=== PATIENT | male | born 1995 | race Caucasian/White ===

== ENCOUNTER 2018-11-16 23:04 | Inpatient (IN) | payer BC ==
[~2018-11-16] VITALS: Ht 180.3 cm; Wt 70.3 kg
--- NOTE | 2018-11-16 23:57 | PHYS DOC ---
Adult General Chief Complaint Chief Complaint: SEIZURE HPI HPI Patient is a 23 year old male with history of depression who presents witnessed first time seizure episode lasting 1-2 minutes. Patient states he was sitting on his couch watching TV show when the episode occurred. Denies aura, headache, change of vision, palpitations or other symptoms prior to onset of seizure. Patient's mother states that the patient twisted his left arm back towards and above his head, grimaced his face, then had a tonic seizure lasting about 1-2 minutes. Patient salivating during the episode. No tongue laceration or loss of bowel or bladder injury.The patient does not recall the episode. The first thing he recalls is EMS standing over his head. Patient complains of mild residual headache, nausea. Patient vomited once prior to ED arrival. Denies prior seizures, family history of epilepsy. No recent illnesses. Reports THC and alcohol use.. Patient has missed 2 doses of citalopram in the past. Patient also reports left shoulder pain with shoulder immobility deformity suggestive of dislocation.[] Review of Systems Review of Systems ROS as per HPI All other systems were reviewed and found to be within normal limits, except as documented in this note. Current Medications Current Medications Current Medications Medications (Trade) Dose Ordered Sig/Олег Start Time Stop Time Status Last Admin Dose Admin Ketorolac Tromethamine (Toradol 15mg Vial) 15 mg 1X ONCE 11/17/18 03:00 11/17/18 03:01 DC 11/17/18 02:58 15 MG Ondansetron HCl (Zofran) 4 mg 1X ONCE 11/17/18 00:00 11/17/18 00:01 DC 11/17/18 00:04 4 MG Propofol (Diprivan) 200 mg 1X ONCE 11/17/18 00:25 11/17/18 01:52 DC 11/17/18 00:25 200 MG Allergies Allergies Allergies Coded Allergies Type Severity Reaction Last Updated Verified No Known Drug Allergies 11/16/18 No Physical Exam Physical Exam Constitutional: Well developed, well nourished, no acute distress, non-toxic appearance. [] HENT: Normocephalic, atraumatic, bilateral external ears normal, oropharynx moist, no tongue or oral lacerations. [] Eyes: PERRLA, EOMI, conjunctiva normal, no discharge. [] Neck: Normal range of motion, no tenderness. [] Cardiovascular:Heart rate regular rhythm, no murmur [] Lungs & Thorax: Bilateral breath sounds clear to auscultation [] Abdomen: Bowel sounds normal, soft, no tenderness. [] Skin: Warm, dry, no erythema. [] Back: No tenderness. [] Extremities: Upper extremity, left shoulder, consistent with dislocation, emotionally checked due to pain. [] Neurologic: Alert and oriented X 3, renal nerves II through XII grossly intact, normal motor function, normal sensory function, no focal deficits noted. [] Psychologic: Affect normal, judgement normal, mood normal. [] Current Patient Data Vital Signs Vital Signs Date Time Temp Pulse Resp B/P (MAP) Pulse Ox O2 Delivery O2 Flow Rate FiO2 11/17/18 05:14 59 12 98 11/17/18 00:27 98.9 127/82 2.0 98.3 2.0 98.4 2.0 2.0 2.0 2.0 11/16/18 23:07 Room Air Lab Values Laboratory Tests Test 11/16/18 23:51 11/17/18 02:00 White Blood Count 14.3 x10^3/uL (4.0-11.0) H Red Blood Count 4.98 x10^6/uL (4.30-5.70) Hemoglobin 14.3 g/dL (13.0-17.5) Hematocrit 42.6 % (39.0-53.0) Mean Corpuscular Volume 86 fL (79-100) Mean Corpuscular Hemoglobin 29 pg (25-35) Mean Corpuscular Hemoglobin Concent 34 g/dL (31-37) Red Cell Distribution Width 13.2 % (11.5-14.5) Platelet Count 305 x10^3/uL (140-400) Neutrophils (%) (Auto) 85 % (31-73) H Lymphocytes (%) (Auto) 7 % (24-48) L Monocytes (%) (Auto) 8 % (0-9) Eosinophils (%) (Auto) 0 % (0-3) Basophils (%) (Auto) 0 % (0-3) Neutrophils # (Auto) 12.1 x10^3uL (1.8-7.7) H Lymphocytes # (Auto) 1.0 x10^3/uL (1.0-4.8) Monocytes # (Auto) 1.1 x10^3/uL (0.0-1.1) Eosinophils # (Auto) 0.0 x10^3/uL (0.0-0.7) Basophils # (Auto) 0.0 x10^3/uL (0.0-0.2) Segmented Neutrophils % 80 % (35-66) H Band Neutrophils % 1 % (0-9) Lymphocytes % 11 % (24-48) L Monocytes % 8 % (0-10) Platelet Estimate Adequate (ADEQUATE) Sodium Level 135 mmol/L (136-145) L Potassium Level 3.6 mmol/L (3.5-5.1) Chloride Level 97 mmol/L (98-107) L Carbon Dioxide Level 26 mmol/L (21-32) Anion Gap 12 (6-14) Blood Urea Nitrogen 20 mg/dL (8-26) Creatinine 1.4 mg/dL (0.7-1.3) H Estimated GFR (Cockcroft-Gault) 63.4 BUN/Creatinine Ratio 14 (6-20) Glucose Level 143 mg/dL (70-99) H Calcium Level 8.9 mg/dL (8.5-10.1) Total Bilirubin 1.0 mg/dL (0.2-1.0) Aspartate Amino Transferase (AST) 30 U/L (15-37) Alanine Aminotransferase (ALT) 35 U/L (16-63) Alkaline Phosphatase 65 U/L (46-116) Total Protein 7.6 g/dL (6.4-8.2) Albumin 4.4 g/dL (3.4-5.0) Albumin/Globulin Ratio 1.4 (1.0-1.7) Ethyl Alcohol Level < 10 mg/dL (0-10) Urine Opiates Screen Neg (NEG) Urine Methadone Screen Neg (NEG) Urine Barbiturates Neg (NEG) Urine Phencyclidine Screen Neg (NEG) Urine Amphetamine/Methamphetamine Neg (NEG) Urine Benzodiazepines Screen Neg (NEG) Urine Cocaine Screen Neg (NEG) Urine Cannabinoids Screen Pos (NEG) Urine Ethyl Alcohol Neg (NEG) Laboratory Tests 11/16/18 23:51 Laboratory Tests 11/16/18 23:51 EKG EKG [EKG: Reviewed] Radiology/Procedures Radiology/Procedures [CT head: No acute findings radiology report Chest x-ray/left shoulder: Posterior shoulder dislocation.] Left shoulder reduction procedure note Indication: Left shoulder dislocation Anesthesia used: Propofol, 400 mg Consent: Risks benefits and alternatives discussed in detail with the patient rolled rest procedure Performing physician: Dr. Jake Pulido Respiratory therapist, nurse at bedside. Patient Cardiovascular pulse oximetry and cooximeter monitors. Patient equiring large quantity of anesthesia for adequate sedation. Alert and talking throughout procedure. Successful relocation of left shoulder with countertraction traction technique. No complications. NV intact on re-examination. Arm placed in sling. Course & Med Decision Making Course & Med Decision Making Pertinent Labs and Imaging studies reviewed. (See chart for details) [On further questioning, the patient reports history of alcoholism with recent relapse over the past 2 weeks. Patient's last drink was 2 days ago. Denies prior alcohol withdrawal seizures. He denies chest pain, anxiety and palpitations. Patient is not tachycardic or hypertensive. No hallucinations exhibit signs of alcohol control. States he usually does not go through alcohol withdrawal with exception of increased internal anxiety. Ativan and Zofran given. Large dosage of propofol required to reduce shoulder. Shoulder placed in sling.. Case discussed with on-call neurologist. Recommendations are for hospitalist admission for training. Dr. Dorsey to admit. ] Dragon Disclaimer Dragon Disclaimer This electronic medical record was generated, in whole or in part, using a voice recognition dictation system. Departure Departure Impression: Primary Impression: Alcohol withdrawal seizure Additional Impression: Shoulder dislocation Disposition: ADMITTED INPATIENT Admitting Physician: Other (Dr. dorsey) Condition: IMPROVED Problem Qualifiers JAKE PULIDO DO Nov 16, 2018 23:57
[2018-11-17] MEDS ORDERED: ONDANSETRON PF 4 MG/2 ML VIAL. IV ONE
[2018-11-17 00:02] LABS: BASO % 0 % (0-3); EOS % 0 % (0-3); HEMATOCRIT 42.6 % (39.0-53.0); HEMOGLOBIN 14.3 g/dL (13.0-17.5); LYMPH % 7 % (24-48); MEAN CORPUSCULAR HEMOGLOBIN 29 pg (25-35); MEAN CORPUSCULAR HGB CONC 34 g/dL (31-37); MEAN CORPUSCULAR VOLUME 86 fL (79-100); MONO # 1.1 x10^3/uL (0.0-1.1); MONO % 8 % (0-9); NEUT # 12.1 x10^3uL (1.8-7.7); NEUT % 85 % (31-73); PLATELET COUNT 305 x10^3/uL (140-400); RED BLOOD COUNT 4.98 x10^6/uL (4.30-5.70); RED CELL DISTRIBUTION WIDTH 13.2 % (11.5-14.5); WHITE BLOOD COUNT 14.3 x10^3/uL (4.0-11.0)
[2018-11-17 00:16] LABS: CALCIUM 8.9 mg/dL (8.5-10.1); CREATININE 1.4 mg/dL (0.7-1.3); GFR 63.4; POTASSIUM 3.6 mmol/L (3.5-5.1)
[2018-11-17 00:24] LABS: ALBUMIN 4.4 g/dL (3.4-5.0); ALBUMIN/GLOBULIN RATIO 1.4 (1.0-1.7); TOTAL PROTEIN 7.6 g/dL (6.4-8.2)
[2018-11-17] MEDS ORDERED: PROPOFOL 10 MG/ML (20ML) VIAL. IV ONE ×2 (00:25)
[2018-11-17 00:27] VITALS: BP 127/82
--- NOTE | 2018-11-17 01:43 | RAD ---
CT head without contrast PQRS statement: CT scans at this facility use dose reduction including either automated exposure control, iterative reconstructions, and /or weight based radiation dosing via mA and kV modification when appropriate to reduce radiation dose to as low as reasonably achievable. HISTORY: Seizure. TECHNIQUE: [address] imaging skull base to vertex. FINDINGS: No intracranial hemorrhage, mass, hydrocephalus, extra-axial fluid collections or infarction. No acute ischemic change. Orbits, mastoids, paranasal sinuses and bones are unremarkable. IMPRESSION: No acute intracranial CT abnormality. Electronically signed by: Jose Sharma MD (11/17/2018 1:40 AM) [facility]
[2018-11-17 02:22] LABS: % BANDS 1 % (0-9); % LYMPHS 11 % (24-48); % MONOS 8 % (0-10); % SEGS 80 % (35-66); PLT ESTIMATE ADEQUATE (ADEQUATE)
[2018-11-17 02:28] LABS: BARBITURATES NEG (NEG); BENZODIAZEPINES NEG (NEG); CANNABINOIDS POS (NEG); COCAINE NEG (NEG); METHADONE NEG (NEG); OPIATES NEG (NEG); PHENCYCLIDINE NEG (NEG)
[2018-11-17 02:29] LABS: AMPHETAMINE/METHAMPHETAMINE NEG (NEG)
[2018-11-17] MEDS ORDERED: KETOROLAC 15 MG/ML VIAL. IV ONE (03:00)
[2018-11-17] MEDS ORDERED: chlordiazePOXIDE HCL 25 MG CAPSULE PO PRN (06:00)
[2018-11-17] MEDS ORDERED: ONDANSETRON PF 4 MG/2 ML VIAL. IV PRN (06:00)
[2018-11-17] MEDS ORDERED: MULTIVIT INFUSN,ADULT 4,VIT K 10 ML, THIAMINE INJ 100 MG, FOLIC ACID INJ 1 MG in IV NOR... IV ONE (07:00)
[2018-11-17 07:45] VITALS: BP 114/62
--- NOTE | 2018-11-17 07:53 | RAD ---
Portable left shoulder, single view, 11/17/2018: HISTORY: Postreduction evaluation A single black view of the left shoulder was obtained and compared to yesterday's exam. There appears to have been satisfactory reduction of the left shoulder dislocation as seen on this limited exam.. No definite fracture is evident. Electronically signed by: Clayton Ralph MD (11/17/2018 7:50 AM) [facility]
--- NOTE | 2018-11-17 08:47 | RAD ---
SHOULDER 2+V LEFT History: LT SHOULDER PAIN, injury Comparison: None. Findings: 2 views left shoulder are submitted. There is left inferior and likely anterior shoulder dislocation. Impression: 1. There is left inferior and likely anterior shoulder dislocation. Electronically signed by: David Tuttle MD (11/17/2018 8:43 AM) [facility]
--- NOTE | 2018-11-17 09:16 | PDOC1 ---
History and Physical Date of Admission Date of Admission DATE: 11/17/18 TIME: 09:15 Identification/Chief Complaint Chief Complaint presented to ER, witnessed first time seizure episode lasting 1-2 minutes. Patient states he was sitting on his couch watching TV show when the episode occurred. Denies aura, headache, change of vision, palpitations or other symptoms prior to onset of seizure. Patient's mother states that the patient twisted his left arm back towards and above his head, grimaced his face, then had a tonic seizure lasting about 1-2 minutes Patient reports he started drinking a lot in high school, became worse in college, attends [employer] in [employer], lives off campus in [place], drinks beer and heavy liquor use., no previous DUI, OR SEIZURES REPORTS GRADES ARE OK AT Past Medical History Cardiovascular: No pertinent hx Pulmonary: No pertinent hx GI: No pertinent hx Psych: Addictions Renal/: No pertinent hx Endocrine: No pertinent hx Dermatology: No pertinent hx Family History Family History: Alcohol Abuse (PARENTS AND UNCLES), High Cholestrol Social History Smoke: No ALCOHOL: heavy Drugs: None, Marijuana Current Medications Current Medications Current Medications Propofol (Diprivan) 200 mg 1X ONCE IV Last administered on 11/17/18at 00:00; Start 11/17/18 at 00:00; Stop 11/17/18 at 00:01; Status DC Ondansetron HCl (Zofran) 4 mg 1X ONCE IV Last administered on 11/17/18at 00:04 ; Start 11/17/18 at 00:00; Stop 11/17/18 at 00:01; Status DC Propofol (Diprivan) 200 mg 1X ONCE IV Last administered on 11/17/18at 00:25; Start 11/17/18 at 00:25; Stop 11/17/18 at 01:52; Status DC Ketorolac Tromethamine (Toradol 15mg Vial) 15 mg 1X ONCE IV Last administered on 11/17/18at 02:58; Start 11/17/18 at 03:00; Stop 11/17/18 at 03:01; Status DC Ondansetron HCl (Zofran) 4 mg PRN Q8HRS PRN IV NAUSEA/VOMITING 1ST CHOICE; Start 11/17/18 at 06:00; Stop 11/18/18 at 05:59 Chlordiazepoxide (Librium) 50 mg PRN Q1HR PRN PO For CIWA 8-14; Start 11/17/18 at 06:00 Multivitamins 10 ml/Thiamine HCl 100 mg/Folic Acid 1 mg/Sodium Chloride 1,011.2 ml @ 1,000.088 mls/hr 1X ONCE IV Last administered on 11/17/18at 06:03; Start 11/17/18 at 07:00; Stop 11/17/18 at 08:00; Status DC Allergies Allergies: Coded Allergies: No Known Drug Allergies (Unverified , 11/16/18) ROS Review of System 14 PT ROS OTHERWISE NEG General: No: Chills, Night Sweats, Fatigue, Malaise, Appetite, Other PSYCHOLOGICAL ROS: No: Anxiety, Behavioral Disorder, Concentration difficultie , Decreased libido, Depression, Disorientation, Hallucinations, Hostility, Irritablity, Memory difficulties, Mood Swings, Obsessive thoughts, Physical abuse, Sexual abuse, Sleep disturbances, Suicidal ideation, Other Eyes: No Blurry vision, No Decreased vision, No Double vision, No Dry eyes, No Excessive tearing, No Eye Pain, No Itchy Eyes, No Loss of vision, No Photophobia , No Scotomata, No Uses contacts, No Uses glasses, No Other ALLERGY AND IMMUNOLOGY: No: Hives, Insect Bite Sensitivity, Itchy/Watery Eyes, Nasal Congestion, Post Nasal Drip, Seasonal Allergies, Other Hematological and Lymphatic: No: Bleeding Problems, Blood Clots, Blood Transfusions, Brusing, Night Sweats, Pallor, Swollen Lymph Nodes, Other ENDOCRINE: No: Breast Changes, Galactorrhea, Hair Pattern Changes, Hot Flashes , Malaise/lethargy, Mood Swings, Palpitations, Polydipsia/polyuria, Skin Changes , Temperature Intolerance, Unexpected Weight Changes, Other Breast: No New/Changing Breast Lumps, No Nipple changes, No Nipple discharge, No Other Respiratory: No: Cough, Hemoptysis, Orthopnea, Pleuritic Pain, Shortness of breath, SOB with excertion, Sputum Changes, Stridor, Tachypnea, Wheezing, Other Cardiovascular: No Chest Pain, No Palpitations, No Orthopnea, No Paroxysmal Noc. Dyspnea, No Edema, No Lt Headedness, No Other Gastrointestinal: No Nausea, No Vomiting, No Abdominal Pain, No Diarrhea, No Constipation, No Melena, No Hematochezia, No Other Genitourinary: No Dysuria, No Frequency, No Incontinence, No Hematuria, No Retention, No Discharge, No Urgency, No Pain, No Flank Pain, No Other, No , No , No , No , No , No , No Musculoskeletal: Yes Joint Pain, Yes Other (LEFT SHOULDER PAIN); No Gait Disturbance, No Joint Stiffness, No Joint Swelling, No Muscle Pain, No Muscular Weakness, No Pain In:, No Swelling In: Neurological: Yes Seizures; No Behavorial Changes, No Bowel/Bladder ControlChng, No Confusion, No Dizziness, No Gait Disturbance, No Headaches, No Impaired Coord/balance, No Memory Loss, No Numbness/Tingling, No Speech Problems, No Tremors, No Visual Changes, No Weakness, No Other Skin: No Dry Skin, No Eczema, No Hair Changes, No Lumps, No Mole Changes, No Mottling, No Nail Changes, No Pruritus, No Rash, No Skin Lesion Changes, No Other, No Acne Physical Exam Physical Exam Physical Exam Physical Exam Constitutional: Well developed, well nourished, no acute distress, non-toxic appearance. [] HENT: Normocephalic, atraumatic, bilateral external ears normal, oropharynx moist, no tongue or oral lacerations. [] Eyes: PERRLA, EOMI, conjunctiva normal, no discharge. [] Neck: Normal range of motion, no tenderness. [] Cardiovascular:Heart rate regular rhythm, no murmur [] Lungs & Thorax: Bilateral breath sounds clear to auscultation [] Abdomen: Bowel sounds normal, soft, no tenderness. [] Skin: Warm, dry, no erythema. [] Back: No tenderness. [] Extremities: Upper extremity, left shoulder, consistent, due to pain. [] Neurologic: Alert and oriented X 3, renal nerves II through XII grossly intact, normal sensory function, no focal deficits noted. [] Psychologic: Affect normal, judgement normal, mood normal. [] General: Alert, Oriented X3, Cooperative, mild distress HEENT: Atraumatic, PERRLA Lungs: Clear to auscultation Heart: RRR, no thrills, no gallops, no murmurs Abdomen: Normal bowel sounds, Soft Rectal Exam: not examined PELVIC: Examination not indicated Extremities: No clubbing, No cyanosis Skin: No significant lesion Neuro: Normal speech, Strength at 5/5 X4 ext, Normal tone, Cranial nerves 3-12 NL Psych/Mental Status: Mental status NL, Mood NL Vitals Vitals Vital Signs Date Time Temp Pulse Resp B/P (MAP) Pulse Ox O2 Delivery O2 Flow Rate FiO2 11/17/18 06:44 79 18 98 11/17/18 00:27 98.9 127/82 2.0 98.3 2.0 98.4 2.0 2.0 2.0 2.0 11/16/18 23:07 Room Air Labs Labs Laboratory Tests Test 11/16/18 23:51 11/17/18 02:00 White Blood Count 14.3 x10^3/uL (4.0-11.0) Red Blood Count 4.98 x10^6/uL (4.30-5.70) Hemoglobin 14.3 g/dL (13.0-17.5) Hematocrit 42.6 % (39.0-53.0) Mean Corpuscular Volume 86 fL (79-100) Mean Corpuscular Hemoglobin 29 pg (25-35) Mean Corpuscular Hemoglobin Concent 34 g/dL (31-37) Red Cell Distribution Width 13.2 % (11.5-14.5) Platelet Count 305 x10^3/uL (140-400) Neutrophils (%) (Auto) 85 % (31-73) Lymphocytes (%) (Auto) 7 % (24-48) Monocytes (%) (Auto) 8 % (0-9) Eosinophils (%) (Auto) 0 % (0-3) Basophils (%) (Auto) 0 % (0-3) Neutrophils # (Auto) 12.1 x10^3uL (1.8-7.7) Lymphocytes # (Auto) 1.0 x10^3/uL (1.0-4.8) Monocytes # (Auto) 1.1 x10^3/uL (0.0-1.1) Eosinophils # (Auto) 0.0 x10^3/uL (0.0-0.7) Basophils # (Auto) 0.0 x10^3/uL (0.0-0.2) Segmented Neutrophils % 80 % (35-66) Band Neutrophils % 1 % (0-9) Lymphocytes % 11 % (24-48) Monocytes % 8 % (0-10) Platelet Estimate Adequate (ADEQUATE) Sodium Level 135 mmol/L (136-145) Potassium Level 3.6 mmol/L (3.5-5.1) Chloride Level 97 mmol/L (98-107) Carbon Dioxide Level 26 mmol/L (21-32) Anion Gap 12 (6-14) Blood Urea Nitrogen 20 mg/dL (8-26) Creatinine 1.4 mg/dL (0.7-1.3) Estimated GFR (Cockcroft-Gault) 63.4 BUN/Creatinine Ratio 14 (6-20) Glucose Level 143 mg/dL (70-99) Calcium Level 8.9 mg/dL (8.5-10.1) Magnesium Level 2.5 mg/dL (1.8-2.4) Total Bilirubin 1.0 mg/dL (0.2-1.0) Aspartate Amino Transf (AST/SGOT) 30 U/L (15-37) Alanine Aminotransferase (ALT/SGPT) 35 U/L (16-63) Alkaline Phosphatase 65 U/L (46-116) Total Protein 7.6 g/dL (6.4-8.2) Albumin 4.4 g/dL (3.4-5.0) Albumin/Globulin Ratio 1.4 (1.0-1.7) Ethyl Alcohol Level < 10 mg/dL (0-10) Urine Opiates Screen Neg (NEG) Urine Methadone Screen Neg (NEG) Urine Barbiturates Neg (NEG) Urine Phencyclidine Screen Neg (NEG) Urine Amphetamine/Methamphetamine Neg (NEG) Urine Benzodiazepines Screen Neg (NEG) Urine Cocaine Screen Neg (NEG) Urine Cannabinoids Screen Pos (NEG) Urine Ethyl Alcohol Neg (NEG) Laboratory Tests Test 11/16/18 23:51 11/17/18 02:00 White Blood Count 14.3 x10^3/uL (4.0-11.0) Red Blood Count 4.98 x10^6/uL (4.30-5.70) Hemoglobin 14.3 g/dL (13.0-17.5) Hematocrit 42.6 % (39.0-53.0) Mean Corpuscular Volume 86 fL (79-100) Mean Corpuscular Hemoglobin 29 pg (25-35) Mean Corpuscular Hemoglobin Concent 34 g/dL (31-37) Red Cell Distribution Width 13.2 % (11.5-14.5) Platelet Count 305 x10^3/uL (140-400) Neutrophils (%) (Auto) 85 % (31-73) Lymphocytes (%) (Auto) 7 % (24-48) Monocytes (%) (Auto) 8 % (0-9) Eosinophils (%) (Auto) 0 % (0-3) Basophils (%) (Auto) 0 % (0-3) Neutrophils # (Auto) 12.1 x10^3uL (1.8-7.7) Lymphocytes # (Auto) 1.0 x10^3/uL (1.0-4.8) Monocytes # (Auto) 1.1 x10^3/uL (0.0-1.1) Eosinophils # (Auto) 0.0 x10^3/uL (0.0-0.7) Basophils # (Auto) 0.0 x10^3/uL (0.0-0.2) Segmented Neutrophils % 80 % (35-66) Band Neutrophils % 1 % (0-9) Lymphocytes % 11 % (24-48) Monocytes % 8 % (0-10) Platelet Estimate Adequate (ADEQUATE) Sodium Level 135 mmol/L (136-145) Potassium Level 3.6 mmol/L (3.5-5.1) Chloride Level 97 mmol/L (98-107) Carbon Dioxide Level 26 mmol/L (21-32) Anion Gap 12 (6-14) Blood Urea Nitrogen 20 mg/dL (8-26) Creatinine 1.4 mg/dL (0.7-1.3) Estimated GFR (Cockcroft-Gault) 63.4 BUN/Creatinine Ratio 14 (6-20) Glucose Level 143 mg/dL (70-99) Calcium Level 8.9 mg/dL (8.5-10.1) Magnesium Level 2.5 mg/dL (1.8-2.4) Total Bilirubin 1.0 mg/dL (0.2-1.0) Aspartate Amino Transf (AST/SGOT) 30 U/L (15-37) Alanine Aminotransferase (ALT/SGPT) 35 U/L (16-63) Alkaline Phosphatase 65 U/L (46-116) Total Protein 7.6 g/dL (6.4-8.2) Albumin 4.4 g/dL (3.4-5.0) Albumin/Globulin Ratio 1.4 (1.0-1.7) Ethyl Alcohol Level < 10 mg/dL (0-10) Urine Opiates Screen Neg (NEG) Urine Methadone Screen Neg (NEG) Urine Barbiturates Neg (NEG) Urine Phencyclidine Screen Neg (NEG) Urine Amphetamine/Methamphetamine Neg (NEG) Urine Benzodiazepines Screen Neg (NEG) Urine Cocaine Screen Neg (NEG) Urine Cannabinoids Screen Pos (NEG) Urine Ethyl Alcohol Neg (NEG) Images Images \ Portable left shoulder, single view, 11/17/2018: HISTORY: Postreduction evaluation A single black view of the left shoulder was obtained and compared to yesterday's exam. There appears to have been satisfactory reduction of the left shoulder dislocation as seen on this limited exam.. No definite fracture is evident. Electronically signed by: Clayton Ralph MD (11/17/2018 7:50 AM) [facility] DICTATED and SIGNED BY: CLAYTON RALPH MD STATUS: REG ER ORD. PHYSICIAN: HERNÁN PULIDO DO REASON: Seizure PROCEDURE: CT HEAD WO CONTRAST CT head without contrast PQRS statement: CT scans at this facility use dose reduction including either automated exposure control, iterative reconstructions, and /or weight based radiation dosing via mA and kV modification when appropriate to reduce radiation dose to as low as reasonably achievable. HISTORY: Seizure. TECHNIQUE: [address] imaging skull base to vertex. FINDINGS: No intracranial hemorrhage, mass, hydrocephalus, extra-axial fluid collections or infarction. No acute ischemic change. Orbits, mastoids, paranasal sinuses and bones are unremarkable. IMPRESSION: No acute intracranial CT abnormality. Electronically signed by: Jose Sharma MD (11/17/2018 1:40 AM) [facility] VTE Prophylaxis Ordered VTE Prophylaxis Devices: Yes VTE Pharmacological Prophylaxi: Yes Assessment/Plan Assessment/Plan impression 1. alcohol related withdrawal seizure, new 2. alcohol abuse 3. thc abuse 4. shoulder pain, There appears to have been satisfactory reduction of left shoulder dislocation plan tele seizure precautions neurology consult alcohol withdrawal protocol banana bag thiamine folic acid dvt prophylaxis protonix gi prophylaxis ct head x-ray shoulder alcohol treatment cessation needed, educated LEFT ARM SLING ATTEND AA 78 min pt exam, chart review, > 50% of time with exam, chart review, pt care coordination ADIA VILLALOBOS MD Nov 17, 2018 09:15
[2018-11-17 11:00] VITALS: BP 119/65
[2018-11-17] MEDS ORDERED: CITA20TA9 PO (11:16)
--- NOTE | 2018-11-17 12:26 | PDOC2 ---
NEUROLOGY CONSULT Date of Admission Date of Admission DATE: 11/17/18 TIME: 12:18 Reason for Consult Reason for Consult: New seizure Referring Physician Referring Physician: Dr. Wall Source Source: Caregiver (Father), Chart review, Patient History of Present Illness History of Present Illness The patient is a 23-year-old right-handed male who was sitting on his couch yesterday morning when he had a seizure. It lasted about a minute or 2 and there was tongue biting and probably some incontinence. He's never had a seizure before. There is a history of concussion. He does drink alcohol, starting in high school in binge drinking in college. He had some binge drinking a week ago and then think again 3 days ago, proximally 4 beverages. He' s never had delirium tremens.He does see a psychiatrist who has been prescribing citalopram. Past Medical History Psych: Anxiety, Depression Past Surgical History Past Surgical History: No pertinent history Family History Family History: No pertinent hx ( negative for seizures) Social History Social History Alcohol history as above, student, occasional marijuana, he vapes tobacco. Current Medications Current Medications Current Medications Propofol (Diprivan) 200 mg 1X ONCE IV Last administered on 11/17/18at 00:00; Start 11/17/18 at 00:00; Stop 11/17/18 at 00:01; Status DC Ondansetron HCl (Zofran) 4 mg 1X ONCE IV Last administered on 11/17/18at 00:04 ; Start 11/17/18 at 00:00; Stop 11/17/18 at 00:01; Status DC Propofol (Diprivan) 200 mg 1X ONCE IV Last administered on 11/17/18at 00:25; Start 11/17/18 at 00:25; Stop 11/17/18 at 01:52; Status DC Ketorolac Tromethamine (Toradol 15mg Vial) 15 mg 1X ONCE IV Last administered on 11/17/18at 02:58; Start 11/17/18 at 03:00; Stop 11/17/18 at 03:01; Status DC Ondansetron HCl (Zofran) 4 mg PRN Q8HRS PRN IV NAUSEA/VOMITING 1ST CHOICE; Start 11/17/18 at 06:00; Stop 11/18/18 at 05:59 Chlordiazepoxide (Librium) 50 mg PRN Q1HR PRN PO For CIWA 8-14; Start 11/17/18 at 06:00 Multivitamins 10 ml/Thiamine HCl 100 mg/Folic Acid 1 mg/Sodium Chloride 1,011.2 ml @ 1,000.088 mls/hr 1X ONCE IV Last administered on 11/17/18at 06:03; Start 11/17/18 at 07:00; Stop 11/17/18 at 08:00; Status DC Citalopram Hydrobromide (CeleXA) 20 mg DAILY PO ; Start 11/17/18 at 12:30 Active Scripts Active Reported Celexa (Citalopram Hydrobromide) 20 Mg Tablet 1 Tab PO DAILY Allergies Allergies: Coded Allergies: No Known Drug Allergies (Unverified , 11/16/18) ROS Review of System Negative for fever, chills, weight loss, shortness of breath, chest pain, indigestion, hematochezia, melena, and dysuria. Full 14-point review of systems is negative. Physical Exam Physical Examination General: Well-developed, well-nourished white male in no acute distress HEENT: Normocephalic andatraumatic, small tongue laceration. Temporal arteries pulsatile and nontender. Neck: Supple without bruit, no meningismus Musculoskeletal: Stability:see neurologic. Gait exam:see neurologic. Tone:see neurologic. Strength:see neurologic. Neurological: Mental Status:intact, orientation, memory, attention span/concentration, language, fund of knowledge normal. Cranial Nerves:Pupils equal and reactive to light, extraocular movements areintact, visual solis are full to confrontation. Facial sensation is normal. There is no facial asymmetry. Vestibulo-ocular reflex is intact. Palate elevates and tongue protrudes in midline. All other cranial related problems are negative except as mentioned before.Reflexes:2+ and symmetric with flexor plantar responses. Motor:5/5 strength with normal tone and bulk. Coordination:Finger-nose finger and heel-to -herring testing are normal. Rapid alternating movements and fine finger movements are intact. Gait:Normal, including tandem. Sensory:Normal pinprick, vibration , light touch, proprioception. Vitals VITALS Vital Signs Date Time Temp Pulse Resp B/P (MAP) Pulse Ox O2 Delivery O2 Flow Rate FiO2 11/17/18 11:00 98.7 78 18 119/65 (83) 99 Room Air 98.7 11/17/18 00:27 2.0 2.0 2.0 2.0 2.0 2.0 Labs Labs Laboratory Tests Test 11/16/18 23:51 11/17/18 02:00 White Blood Count 14.3 x10^3/uL (4.0-11.0) Red Blood Count 4.98 x10^6/uL (4.30-5.70) Hemoglobin 14.3 g/dL (13.0-17.5) Hematocrit 42.6 % (39.0-53.0) Mean Corpuscular Volume 86 fL (79-100) Mean Corpuscular Hemoglobin 29 pg (25-35) Mean Corpuscular Hemoglobin Concent 34 g/dL (31-37) Red Cell Distribution Width 13.2 % (11.5-14.5) Platelet Count 305 x10^3/uL (140-400) Neutrophils (%) (Auto) 85 % (31-73) Lymphocytes (%) (Auto) 7 % (24-48) Monocytes (%) (Auto) 8 % (0-9) Eosinophils (%) (Auto) 0 % (0-3) Basophils (%) (Auto) 0 % (0-3) Neutrophils # (Auto) 12.1 x10^3uL (1.8-7.7) Lymphocytes # (Auto) 1.0 x10^3/uL (1.0-4.8) Monocytes # (Auto) 1.1 x10^3/uL (0.0-1.1) Eosinophils # (Auto) 0.0 x10^3/uL (0.0-0.7) Basophils # (Auto) 0.0 x10^3/uL (0.0-0.2) Segmented Neutrophils % 80 % (35-66) Band Neutrophils % 1 % (0-9) Lymphocytes % 11 % (24-48) Monocytes % 8 % (0-10) Platelet Estimate Adequate (ADEQUATE) Sodium Level 135 mmol/L (136-145) Potassium Level 3.6 mmol/L (3.5-5.1) Chloride Level 97 mmol/L (98-107) Carbon Dioxide Level 26 mmol/L (21-32) Anion Gap 12 (6-14) Blood Urea Nitrogen 20 mg/dL (8-26) Creatinine 1.4 mg/dL (0.7-1.3) Estimated GFR (Cockcroft-Gault) 63.4 BUN/Creatinine Ratio 14 (6-20) Glucose Level 143 mg/dL (70-99) Calcium Level 8.9 mg/dL (8.5-10.1) Magnesium Level 2.5 mg/dL (1.8-2.4) Total Bilirubin 1.0 mg/dL (0.2-1.0) Aspartate Amino Transf (AST/SGOT) 30 U/L (15-37) Alanine Aminotransferase (ALT/SGPT) 35 U/L (16-63) Alkaline Phosphatase 65 U/L (46-116) Total Protein 7.6 g/dL (6.4-8.2) Albumin 4.4 g/dL (3.4-5.0) Albumin/Globulin Ratio 1.4 (1.0-1.7) Ethyl Alcohol Level < 10 mg/dL (0-10) Urine Opiates Screen Neg (NEG) Urine Methadone Screen Neg (NEG) Urine Barbiturates Neg (NEG) Urine Phencyclidine Screen Neg (NEG) Urine Amphetamine/Methamphetamine Neg (NEG) Urine Benzodiazepines Screen Neg (NEG) Urine Cocaine Screen Neg (NEG) Urine Cannabinoids Screen Pos (NEG) Urine Ethyl Alcohol Neg (NEG) Laboratory Tests Test 11/16/18 23:51 11/17/18 02:00 White Blood Count 14.3 x10^3/uL (4.0-11.0) Red Blood Count 4.98 x10^6/uL (4.30-5.70) Hemoglobin 14.3 g/dL (13.0-17.5) Hematocrit 42.6 % (39.0-53.0) Mean Corpuscular Volume 86 fL (79-100) Mean Corpuscular Hemoglobin 29 pg (25-35) Mean Corpuscular Hemoglobin Concent 34 g/dL (31-37) Red Cell Distribution Width 13.2 % (11.5-14.5) Platelet Count 305 x10^3/uL (140-400) Neutrophils (%) (Auto) 85 % (31-73) Lymphocytes (%) (Auto) 7 % (24-48) Monocytes (%) (Auto) 8 % (0-9) Eosinophils (%) (Auto) 0 % (0-3) Basophils (%) (Auto) 0 % (0-3) Neutrophils # (Auto) 12.1 x10^3uL (1.8-7.7) Lymphocytes # (Auto) 1.0 x10^3/uL (1.0-4.8) Monocytes # (Auto) 1.1 x10^3/uL (0.0-1.1) Eosinophils # (Auto) 0.0 x10^3/uL (0.0-0.7) Basophils # (Auto) 0.0 x10^3/uL (0.0-0.2) Segmented Neutrophils % 80 % (35-66) Band Neutrophils % 1 % (0-9) Lymphocytes % 11 % (24-48) Monocytes % 8 % (0-10) Platelet Estimate Adequate (ADEQUATE) Sodium Level 135 mmol/L (136-145) Potassium Level 3.6 mmol/L (3.5-5.1) Chloride Level 97 mmol/L (98-107) Carbon Dioxide Level 26 mmol/L (21-32) Anion Gap 12 (6-14) Blood Urea Nitrogen 20 mg/dL (8-26) Creatinine 1.4 mg/dL (0.7-1.3) Estimated GFR (Cockcroft-Gault) 63.4 BUN/Creatinine Ratio 14 (6-20) Glucose Level 143 mg/dL (70-99) Calcium Level 8.9 mg/dL (8.5-10.1) Magnesium Level 2.5 mg/dL (1.8-2.4) Total Bilirubin 1.0 mg/dL (0.2-1.0) Aspartate Amino Transf (AST/SGOT) 30 U/L (15-37) Alanine Aminotransferase (ALT/SGPT) 35 U/L (16-63) Alkaline Phosphatase 65 U/L (46-116) Total Protein 7.6 g/dL (6.4-8.2) Albumin 4.4 g/dL (3.4-5.0) Albumin/Globulin Ratio 1.4 (1.0-1.7) Ethyl Alcohol Level < 10 mg/dL (0-10) Urine Opiates Screen Neg (NEG) Urine Methadone Screen Neg (NEG) Urine Barbiturates Neg (NEG) Urine Phencyclidine Screen Neg (NEG) Urine Amphetamine/Methamphetamine Neg (NEG) Urine Benzodiazepines Screen Neg (NEG) Urine Cocaine Screen Neg (NEG) Urine Cannabinoids Screen Pos (NEG) Urine Ethyl Alcohol Neg (NEG) Images Images CT head without contrast No intracranial hemorrhage, mass, hydrocephalus, extra-axial fluid collections or infarction. No acute ischemic change. Orbits, mastoids, paranasal sinuses and bones are unremarkable. IMPRESSION: No acute intracranial CT abnormality. Assessment/Plan Assessment/Plan Impression: New onset of seizure probably related to alcohol use, also has positive cannabinoids in urine Left shoulder dislocation from the seizure Recommendations: MRI of the brain Electroencephalogram Holding off on anticonvulsants Alcohol and marijuana abstention Patient cannot drive until he has been 6 months without a seizure Continuing psychiatric follow-up Aim for discharge later today Discussed with patient and his father. Thank you for letting me help with the patient's care TESSIE COELHO MD Nov 17, 2018 12:25
[2018-11-17] MEDS ORDERED: CITALOPRAM 20 MG TABLET. PO SCH (12:30)
[2018-11-17] MEDS ORDERED: GADOBUTROL 7.5 MMOL/7.5 ML VIAL IV ONE (14:00)
--- NOTE | 2018-11-17 14:49 | RAD ---
MRI Brain with and without contrast History: Recent seizure Technique: Multiplanar, multi sequential pre and postcontrast MR imaging was performed of the brain. Comparison: None Findings: There is mild motion. There is no evidence of recent infarct or cytotoxic edema. The ventricles, sulci, and cisterns are within normal limits in size and configuration. There is no significant midline shift, intraaxial mass effect, or focal abnormal extra-axial fluid collection. There is no significant signal abnormality of the brain parenchyma. Hippocampal formations are symmetric in size and signal characteristics. There is no nodular parenchymal or leptomeningeal enhancement. There is preservation of the major intracranial flow-voids at the skull base. The cerebellar tonsils are normal in location. There is no significant abnormality of the pineal gland or pituitary gland. There is negligible patchy maxillary sinus mucosal thickening, also of the ethmoid air cells. The mastoid air cells are aerated. There is preserved marrow signal of the clivus. Impression: 1. There is no significant intracranial abnormality. Electronically signed by: David Tuttle MD (11/17/2018 2:46 PM) [id number]
[2018-11-17 15:01] VITALS: BP 115/64
[2018-11-17] MEDS ORDERED: IBUPROFEN 200 MG TABLET. PO PRN (15:30)
--- NOTE | 2018-11-17 16:34 | NUR ---
MARI consulted for OP ETOH. MARI left resource packet with RN to give to Pt.
--- NOTE | 2018-11-17 17:16 | NUR ---
Patient's mother asked if patient can be discharged today. Called Dr. Wall at 1630, ok for discharge today. updated of neurology recommendation. Patient will be discharged to home. FF up PCP in 1 week re left shoulder dislocation. Patient also has to abstain from alcohol and to attend AA meetings.
[2018-11-17] MEDS ORDERED: FOLI1TAB16 PO (17:21)
[2018-11-17] MEDS ORDERED: THIA100T43 PO (17:23)
--- NOTE | 2018-11-17 18:38 | EEG ---
DATE OF SERVICE: 11/17/2018 OBJECTIVE: The patient is a 23-year-old male with new onset of seizures. DESCRIPTION: This is a digital study. Electrodes are placed according to the international 10-20 system. Bipolar and referential montages are available. Activation procedures typically include hyperventilation and intermittent photic stimulation. INTERPRETATION: The waking background consists of 9-10 Hz, 50-100 microvolt activity, symmetrically distributed over parietooccipital regions and reactive to eye opening. Hyperventilation and intermittent photic stimulation are noncontributory. Stage 1 sleep is achieved with normal electroencephalogram patterns. All computer identified abnormalities are in fact normal electroencephalogram patterns. IMPRESSION: This electroencephalogram with the patient awake and asleep is within normal limits. There is no focal, paroxysmal or epileptiform activity. Thank you for letting us help with the patient's care. TESSIE COELHO MD DR: YEIMI/edison JOB#: [id number] / [id number]
--- NOTE | 2018-11-17 19:23 | NUR ---
Discharge Note: [facility] Discharge instructions and discharge home medications reviewed with patient and patient's mother; and a copy given. All questions have been answered and understanding verbalized. The following instructions and handouts were given: Alcohol withdrawal handout AA resource sheet FF up with psychiatrist FF up with PCP in a week re shoulder Abstain from alcohol and marijuana FF up with neurologist as needed Do not drive for 6 months Discontinued lines and drains: peripheral IV intact, patient tolerated removal, nop complications noted Patient discharged to home accompanied by patient's mother at 1806.
--- NOTE | 2018-11-18 07:41 | RAD ---
Portable chest, 11/16/2018: HISTORY: Left shoulder pain, injury The heart size and pulmonary vascularity are normal. The lungs are clear. There is no evidence of pleural fluid or pneumothorax. There is an anterior dislocation at the left shoulder joint. An associated impaction fracture of the humeral head cannot be excluded. IMPRESSION: 1. No acute cardiopulmonary abnormality is detected. 2. Left shoulder dislocation. Electronically signed by: Clayton Ralph MD (11/18/2018 7:38 AM) [facility]
== END 2018-11-17 18:06 | disposition home or self-care (01) | DRG 101 ==
LOC: ER 11-17 00:19 → 6 SOUTH 11-17 06:30
PROVIDERS: ADMIT Internal Medicine; ATTEND Internal Medicine
PROC: 0RSKXZZ Reposition Left Shoulder Joint, External Approach (ICD-10-PCS; principal; 2018-11-17)
DX: R56.9 Unspecified convulsions (principal); F10.239 Alcohol dependence with withdrawal, unspecified; S43.005A Unspecified dislocation of left shoulder joint, initial encounter; F12.10 Cannabis abuse, uncomplicated; R32 Unspecified urinary incontinence; F32.9 Major depressive disorder, single episode, unspecified; F41.9 Anxiety disorder, unspecified; X50.1XXA Overexertion from prolonged static or awkward postures, initial encounter; Z87.820 Personal history of traumatic brain injury; Z81.1 Family history of alcohol abuse and dependence; Z79.899 Other long term (current) drug therapy; Y93.89 Activity, other specified; Y92.89 Other specified places as the place of occurrence of the external cause; Y99.8 Other external cause status
CPT/HCPCS: 36415; 70450; 70553; 71045; 73020; 73030; 80053; 80307; 83735; 85007; 85025; 95816; 96365; 96375; A9585; G0480; J1885; J2405; J2704; J7030; 99285-25